=== PATIENT | male | born 1970 | race Caucasian/White ===

== ENCOUNTER 2023-04-26 09:28 | Emergency (ER) | payer SELFPAY ==
[2023-04-26] MEDS ORDERED: Aspirin 81 MG Tab.Chew PO ONE (09:43)
[2023-04-26] MEDS ORDERED: diphenhydrAMINE 50 MG/ML SDV IVPUSH ONE (09:46)
[2023-04-26] MEDS ORDERED: Morphine 4 MG/ML Syringe IVPUSH ONE (09:46)
[2023-04-26] MEDS ORDERED: Metoclopramide 10 MG/2 ML SDV IVPUSH ONE (09:46)
[2023-04-26 09:58] LABS: BASOPHILS ABSOLUTE AUTO 0.06 K/uL (0.00-0.20); EOSINOPHILS PERCENT AUTO 3.2 % (0.0-6.0); HEMATOCRIT 44.8 % (42.0-52.0); HEMOGLOBIN 15.5 g/dL (14.0-18.0); IMMATURE GRAN ABSOLUTE AUTO 0.01 K/uL (0.00-0.05); IMMATURE GRAN PERCENT AUTO 0.2 % (0.0-0.4); LYMPHOCYTES ABSOLUTE AUTO 2.78 K/uL (1.00-4.80); LYMPHOCYTES PERCENT AUTO 44.1 % (24.0-44.0); MEAN CORPUSCULAR HEMOGLOBIN 31.1 pg (28.0-32.0); MEAN CORPUSCULAR HGB CONC 34.6 g/dL (32.0-36.0); MEAN CORPUSCULAR VOLUME 89.8 fL (83.0-99.0); MEAN PLATELET VOLUME 8.9 fL (9.4-12.4); MONOCYTES ABSOLUTE AUTO 0.38 K/uL (0.00-0.80); NEUTROPHILS ABSOLUTE AUTO 2.9 K/uL (1.8-7.7); NEUTROPHILS PERCENT AUTO 45.5 % (41.0-71.0); PLATELET COUNT,PLT 336 K/uL (150-400); RED BLOOD CELL COUNT 4.99 M/uL (4.52-5.90)
[2023-04-26] MEDS ORDERED: HYDROmorphone 2 MG/ML Syringe IVPUSH ONE (10:16)
[2023-04-26 10:18] LABS: INR 0.97 (0.86-1.11); PTT,PARTIAL THROMBOPLSTIN TIME 29.6 SEC (23.9-30.7)
[2023-04-26 10:20] LABS: D-DIMER QUANTITATIVE < 0.19 mg/L FEU (0.00-0.50)
[2023-04-26 10:22] LABS: ALANINE AMINOTRANSFERASE,ALT 26 IU/L (14-63); ALBUMIN 3.7 g/dL (3.4-5.0); ALKALINE PHOSPHATASE 79 U/L (46-116); ASPARTATE AMNIOTRANSFERASE,AST 17 IU/L (15-37); BILIRUBIN TOTAL 0.4 mg/dL (0.2-1.0); BLOOD UREA NITROGEN,BUN 19 mg/dL (7.0-18.0); CALCIUM 8.9 mg/dL (8.5-10.1); CARBON DIOXIDE,CO2 24.3 mmol/L (21.0-32.0); CHLORIDE,CL 103 mmol/L (98-107); EST CRCL DRUG DOSING (CG) 94.13 mL/min; ETHANOL BLOOD MEDICAL <3 mg/dL; GLUCOSE RANDOM 107 mg/dL (74-106); LIPASE 30 U/L (16-77); MAGNESIUM 1.7 mg/dL (1.8-2.4); PROTEIN TOTAL,TP 7.4 g/dL (6.4-8.2); SODIUM,NA 137 mmol/L (136-148)
[2023-04-26 10:25] LABS: ESTIMATED GFR 92 mL/min (>60)
== END 2023-04-26 13:25 | disposition home or self-care (01) ==
LOC: MW.ED 09:28
DX: R07.9 Chest pain, unspecified (principal); R51.9 Headache, unspecified; Z88.5 Allergy status to narcotic agent; Z20.822 Contact with and (suspected) exposure to COVID-19; Z79.82 Long term (current) use of aspirin
CPT/HCPCS: 36415; 70450; 71045; 80053; 80307; 83690; 83735; 84484; 85025; 85379; 85610; 85730; 87635; 93005; 96374; 96375; 99285; A9270; J1170; J1200; J2765; 93010; 99284; U0002

== ENCOUNTER 2023-11-26 20:47 | Emergency (ER) | payer SELFPAY ==
[2023-11-26 23:19] LABS: BASOPHILS ABSOLUTE AUTO 0.03 K/uL (0.00-0.20); BASOPHILS PERCENT AUTO 0.4 % (0.0-1.0); EOSINOPHILS ABSOLUTE AUTO 0.07 K/uL (0.00-0.45); HEMATOCRIT 48.5 % (42.0-52.0); HEMOGLOBIN 17.2 g/dL (14.0-18.0); IMMATURE GRAN ABSOLUTE AUTO 0.02 K/uL (0.00-0.05); IMMATURE GRAN PERCENT AUTO 0.3 % (0.0-0.4); LYMPHOCYTES ABSOLUTE AUTO 1.41 K/uL (1.00-4.80); LYMPHOCYTES PERCENT AUTO 20.1 % (24.0-44.0); MEAN CORPUSCULAR HEMOGLOBIN 32.1 pg (28.0-32.0); MEAN CORPUSCULAR HGB CONC 35.5 g/dL (32.0-36.0); MEAN CORPUSCULAR VOLUME 90.7 fL (83.0-99.0); MEAN PLATELET VOLUME 8.9 fL (9.4-12.4); MONOCYTES ABSOLUTE AUTO 0.47 K/uL (0.00-0.80); MONOCYTES PERCENT AUTO 6.7 % (0.0-8.0); NEUTROPHILS ABSOLUTE AUTO 5.02 K/uL (1.80-7.70); NEUTROPHILS PERCENT AUTO 71.5 % (41.0-71.0); PLATELET COUNT,PLT 261 K/uL (150-400); RED BLOOD CELL COUNT 5.35 M/uL (4.52-5.90); WHITE BLOOD CELL COUNT,WBC 7.02 K/uL (3.9-11.3)
[2023-11-26] MEDS: Sodium Chloride 0.9% 10 ML Syringe FLUSH PRN (23:22)
[2023-11-26] MEDS: Sodium Chloride 0.9% 1,000 ML IV ONE (23:22)
[2023-11-26] MEDS: Ketorolac 30 MG/ML SDV IVPUSH ONE (23:22)
[2023-11-26] MEDS: Ondansetron 4 MG/2 ML SDV IVPUSH ONE (23:22)
[2023-11-26] MEDS: Sodium Chloride 0.9% 2.5 ML Syringe FLUSH PRN (23:22)
[2023-11-26 23:41] LABS: A/G RATIO 0.8 (0.9-1.6); ALBUMIN 3.6 g/dL (3.4-5.0); BILIRUBIN TOTAL 0.4 mg/dL (0.2-1.0); CALCIUM 8.6 mg/dL (8.5-10.1); CARBON DIOXIDE,CO2 19.6 mmol/L (21.0-32.0); CREATININE 1.2 mg/dL (0.8-1.3); EST CRCL DRUG DOSING (CG) 78.44 mL/min; MAGNESIUM 1.7 mg/dL (1.8-2.4); POTASSIUM,K 4.1 mmol/L (3.5-5.1); PROTEIN TOTAL,TP 7.9 g/dL (6.4-8.2)
[2023-11-27] MEDS: Lactated Ringers 1,000 ML IV ONE (00:01)
[2023-11-27] MEDS: Magnesium Sulfate/Water 2 GM in Premix Bag 1 BAG IV ONE (00:01)
== END 2023-11-27 01:57 | disposition home or self-care (01) ==
LOC: MW.ED 20:47
DX: E86.0 Dehydration (principal); E83.42 Hypomagnesemia; I25.2 Old myocardial infarction; Z88.5 Allergy status to narcotic agent; Z79.899 Other long term (current) drug therapy
CPT/HCPCS: 36415; 80053; 83690; 83735; 85025; 87635; 96361; 96365; 96375; 99284; J1885; J2405; J3475; J3490; J7030; J7120; U0002